=== PATIENT | female | born 1960 | race Caucasian/White ===

== ENCOUNTER 2019-10-30 22:31 | Emergency (ER) | payer SELFPAY ==
[~2019-10-30] VITALS: Ht 157.5 cm; Wt 61.2 kg
[2019-10-31] MEDS ORDERED: IBU600 MG PO (01:17)
[2019-10-31] MEDS ORDERED: Norco 5-325 Ta1 EACH PO (01:17)
== END 2019-10-31 01:59 | disposition home or self-care (01) ==
LOC: ER 22:31
DX: S52.571A Other intraarticular fracture of lower end of right radius, initial encounter for closed fracture (principal); S52.611A Displaced fracture of right ulna styloid process, initial encounter for closed fracture; W18.30XA Fall on same level, unspecified, initial encounter
CPT/HCPCS: 25605; 73100; 73110; 99283-25; A9270